=== PATIENT | male | born 1985 | race Caucasian/White ===

== ENCOUNTER 2020-09-13 19:40 | Emergency (ER) | payer SELFPAY ==
[~2020-09-13] VITALS: Ht 172.7 cm; Wt 74.8 kg
[2020-09-13 19:54] VITALS: BP_SYST 133
[2020-09-13 20:35] VITALS: BP_SYST 133
== END 2020-09-13 20:36 | disposition home or self-care (01) ==
LOC: SED 19:40
DX: H57.11 Ocular pain, right eye (principal); F12.90 Cannabis use, unspecified, uncomplicated; Z94.7 Corneal transplant status; Z88.0 Allergy status to penicillin
CPT/HCPCS: 99283